=== PATIENT | female | born 1985 | race Caucasian/White ===

== ENCOUNTER 2021-01-08 06:57 | Emergency (ER) | payer BC ==
[~2021-01-08] VITALS: Ht 149.9 cm; Wt 54.4 kg
[2021-01-08 07:02] VITALS: BP 119/78
--- NOTE | 2021-01-08 07:02 | NUR ---
TO BED AMBULATORY
--- NOTE | 2021-01-08 07:20 | NUR ---
35 Y/O FEMALE C/O R FLANK PAIN SINCE MONDAY. PT DENIES PAIN AT THIS TIME BUT STATES THAT WHEN IT OCCURS, PAIN IS NONRADIATING AND 7/10 STABBING PAIN. PAIN CAUSES NAUSEA AND "TAKES MY BREATH AWAY". PT STATES THERE IS A LUMP ON R MID BACK THAT HAS BEEN PRESENT FOR ABOUT 2 YEARS AND NEVER CAUSED HER PROBLEMS. NOW PAIN IS OCCURING AND LAST NIGHT DURING WORK, THE PAIN WAS UNBEARABLE. LUMP PALPATED WITHOUT PAIN. PT HAS NAUSEA BUT NO VOMITING. PT DENIES FEVER/CHILLS/DYSURIA. PT IS A/O X4 WITH EVEN AND UNLABORED RESPIRATIONS. PT LAYING IN BED WITH BED IN LOWEST POSITION, BRAKES LOCKED, X1 SIDERAILS UP. PMH: DENIES FIBROID REMOVED IN BREAST AT AGE 18. NKA
--- NOTE | 2021-01-08 07:26 | NUR ---
Patient being evaluated by physician at bedside.
--- NOTE | 2021-01-08 07:35 | NUR ---
PT TAKEN TO CT VIA W/C
--- NOTE | 2021-01-08 07:42 | NUR ---
PT BACK FROM CT
--- NOTE | 2021-01-08 07:50 | NUR ---
LAB AT BEDSIDE
[2021-01-08 08:03] LABS: BASOPHILS # (AUTO) 0.1 K/uL (0.00-0.22); BASOPHILS % (AUTO) 0.9 % (0.0-2.0); EOSINOPHILS # (AUTO) 0.1 K/uL (0-0.4); EOSINOPHILS % (AUTO) 0.8 % (0.0-4.0); HEMATOCRIT 35.4 % (36-48); HEMOGLOBIN 11.9 g/dL (12.0-16.0); LYMPHOCYTES # (AUTO) 2.8 K/uL (2.5-16.5); LYMPHOCYTES % (AUTO) 33.3 % (20.5-51.1); MEAN CORPUSCULAR HEMOGLOBIN 30 pg (27-31); MEAN CORPUSCULAR HGB CONC 34 g/dL (33-37); MEAN CORPUSCULAR VOLUME 90.2 fL (80-94); MONOCYTES # (AUTO) 0.8 K/uL (0.8-1.0); NEUTROPHILS # (AUTO) 4.8 K/uL (1.8-7.7); PLATELET COUNT (AUTO) 271 K/uL (140-450); RED BLOOD CELL COUNT(AUTO) 3.93 MIL/uL (4.20-5.40); RED CELL DISTRIBUTION WIDTH 12.8 % (11.6-13.7); WHITE BLOOD COUNT (AUTO) 8.5 K/uL (4.8-10.8)
[2021-01-08 08:22] LABS: ANION GAP 13.3 (8-16); CARBON DIOXIDE 24.4 mmol/L (21-32); CREATININE 0.7 mg/dL (0.6-1.3); POTASSIUM 3.7 mmol/L (3.5-5.1)
[2021-01-08 08:34] LABS: BILIRUBIN,DIRECT 0.1 mg/dL (0.0-0.3); TOTAL BILIRUBIN 0.5 mg/dL (0.0-1.0)
[2021-01-08 09:03] VITALS: BP 119/78
--- NOTE | 2021-01-08 09:04 | NUR ---
Patient discharged with v/s stable. Written and verbal after care instructions given and explained. Patient verbalized understanding. Ambulatory with steady gait. All questions addressed prior to discharge. Advised to follow up with PMD.
== END 2021-01-08 09:04 | disposition home or self-care (01) ==
LOC: MED 06:57
DX: K76.89 Other specified diseases of liver (principal); D64.9 Anemia, unspecified; N60.02 Solitary cyst of left breast
CPT/HCPCS: 36415; 80048; 80076; 81002; 81025; 83690; 85025; 99284